=== PATIENT | female | born 1930 | race Caucasian/White ===

== ENCOUNTER 2019-12-06 21:07 | Emergency (ER) | payer MEDICARE, OTHER ==
[~2019-12-06] VITALS: Ht 162.6 cm; Wt 70.0 kg
[~2019-12-06 21:07] MED LIST: ACET-812 PO; ALPR-623 PO; ASPI-1053 PO; BRIM5DRO EACHEYE; CALC-331 PO; CHOL10002 PO; DICL100G15 TP; DULO60CA45 PO; FISH1200 PO; FLEC50TA PO; FLO0.4C PO; PANT-47 PO; TRAZ-251 PO; VITA1CAP PO
[2019-12-06] MEDS ORDERED: dexamethasone sod phosphate 10mg/ml inj IV STA (22:43)
[2019-12-06] MEDS ORDERED: proCHLORperazine 10 MG/2 ml inj IV STA (22:43)
[2019-12-06] MEDS ORDERED: normal saline 1000ML IV soln IVB ONE (22:45)
[2019-12-06] MEDS ORDERED: acetaminophen 325mg tablet PO ONE (22:45)
[2019-12-06] MEDS ORDERED: diphenhydrAMINE 50 mg/ml inj IV ONE (22:45)
[2019-12-07 00:27] VITALS: BP 170/71
== END 2019-12-07 00:28 | disposition home or self-care (01) ==
LOC: ER 21:08
DX: R51 Headache (principal); Z88.8 Allergy status to other drugs, medicaments and biological substances; Z79.82 Long term (current) use of aspirin; Z79.899 Other long term (current) drug therapy
CPT/HCPCS: 70450; 93005; 96374; 96375; 99284; J0780; J1100; J1200; J7030